=== PATIENT | male | born 1980 | race Caucasian/White ===

== ENCOUNTER 2019-01-08 23:37 | Emergency (ER) | payer OTHER ==
[2019-01-09] MEDS: ONDANSETRON HCL/PF 4 MG/ 2ML VIAL IVP ONE (00:35)
[2019-01-09] MEDS: 0.9 % SODIUM CHLORIDE 1,000 ML IV ONE ×2 (00:35→02:05)
[2019-01-09] MEDS: KETOROLAC TROMETHAMINE 30 MG/1ML VIAL IV ONE (00:35)
[2019-01-09 01:05] LABS: BASOPHILS % 0.5 % (0.0-1.5); NEUTROPHILS # 7.3 # k/uL (1.4-7.7)
--- NOTE | 2019-01-09 01:06 | ED Physician Documentation ---
General Adult - HISTORIAN Historian: patient - HPI Stated Complaint: L flank pain Chief Complaint: General Adult Onset: days ago Timing: still present Severity: moderate Further Comments: yes (Pt is a 38 yo male with L flank pain. Pain has been going on for 3 days, varying in intesity intermittently. Pt has been nauseated at times. No vomiting. No fever. Pt has had difficulty voiding. Pt was rx'd Cipro empirically via pcp and has taken 4 doses, but this has not helped.) - ROS CONST: no problems EYES/ENT: none CVS/RESP: none GI/: abdominal pain, problems urinating, nausea MS/SKIN/LYMPH: none - PAST HX Past History: hypertension Surgeries/Procedures: cholecystectomy, other (ortho surgery) Allergies/Adverse Reactions: Allergies Allergy/AdvReac Type Severity Reaction Status Date / Time No Known Allergies Allergy Verified 01/09/19 01:20 Home Medications: Ambulatory Orders Medication Instructions Recorded Azelastine HCl 1 spray BC PRN 01/09/19 Ciprofloxacin HCl [Cipro] 500 mg PO BID 01/09/19 HYDROcodone /APAP 5/325 [[place] 1 tab PO QID 01/09/19 5/325] Losartan Potassium [Cozaar] 1 tab PO DAILY 01/09/19 Montelukast Sodium [Singulair] 10 mg PO DAILY 01/09/19 Nebivolol HCl [Bystolic] 10 mg PO DAILY 01/09/19 Sulfamethoxazole/Trimethoprim 1 tab PO BID 01/09/19 [Bactrim DS] amLODIPine BESYLATE [Norvasc] 10 mg PO DAILY 01/09/19 - SOCIAL HX Smoking History: non-smoker - FAMILY HX Family History: Yes (strong fam hx kidney stones) - REVIEWED ASSESSMENTS Nursing Assessment Reviewed: Yes Vitals Reviewed: Yes Progress - Progress Progress: Pt took [place] [employer] suppression [employer] from an old prescription Pt started Cipro 2 days ago empirically via pcp. Delatorre placed for difficulty voiding. Only a small amount of urine obtained. NS 1.5 L IVF Toradol 30 mg IV Zofran [address] abd/pelvis w/o contrast: The aorta is normal in caliber. The visible lung bases are clear. The heart size is normal. There is diffuse hepatic steatosis. The gallbladder is surgically absent. The intrahepatic and extrahepatic bile ducts are nondilated. The spleen, pancreas, and adrenal glands appear normal. The kidneys are normal in size. There is mild left hydroureteronephrosis. There is a 3 mm calculus layering in the urinary bladder on the left, just beyond the vesicoureteral junction. The distal esophagus and stomach appear normal. The small bowel and colon are normal in caliber without evidence of wall thickening or obstruction. The ap pendix is not seen. No free air or free fluid is identified in the abdomen. There is no abdominal lymphadenopathy. A Delatorre catheter terminates in a decompressed urinary bladder. No free fluid is seen in the pelvis. Bone windows demonstrate no suspicious lytic or blastic lesions. The visible osseous structures are intact. IMPRESSION: 1. A 3 mm calculus layering in the urinary bladder on the left, just beyond the vesicoureteral junction. The calculus has likely recently passed given the presence of mild lefthydroureteronephrosis. 2. Diffuse hepatic steatosis. Pt much improved Delatorre cath removed and pt was able to void after 1.5 L NS Continue pain medicine and antibiotic as previously prescribed. Rx Flomax 0.4 mg. Take one daily for 5 days or until stone passes. ED Results Lab/Radiology - Lab Results Lab Results: Lab Results 01/08/19 00:50 WBC 9.90 K/ul K/ul (4.00-12.00) RBC 4.95 M/ul M/ul (3.90-5.20) Hgb 15.4 g/dL g/dL (12.0-18.0) Hct 44.9 % % (37.0-53.0) MCV 91.0 fl fl (80.0-100.0) MCH 31.1 pg pg (28.0-34.0) MCHC 34.2 g/dL g/dL (30.0-36.0) RDW 13.2 % % (11.3-14.3) Plt Count 169 K/mm3 K/mm3 (130-400) Neut % (Auto) 73.3 % % (39.0-79.0) Lymph % (Auto) 16.2 % % (16.0-50.0) Cassia % (Auto) 8.3 % % (0.0-11.0) Eos % (Auto) 1.7 % % (0.0-6.8) Baso % (Auto) 0.5 % % (0.0-1.5) Neut # (Auto) 7.3 # k/uL # k/uL (1.4-7.7) Lymph # (Auto) 1.6 # k/uL # k/uL (0.6-4.0) Cassia # (Auto) 0.8 # k/uL # k/uL (0.0-0.9) Eos # (Auto) 0.2 # k/uL # k/uL (0.0-0.6) Baso # (Auto) 0.1 # k/uL # k/uL (0.0-0.5) - Orders Orders: ED Orders Category Date Time Status Delatorre [Urinary catheterization] 1T Care 01/08/19 23:[address] ABD & PELVIS W/O CON Stat Exams 01/09/19 Ordered CBC/PLATELET/DIFF Routine Lab 01/08/19 00:50 Completed CMP Routine Lab 01/08/19 00:50 Received UA [URINALYSIS] Routine Lab 01/08/19 Ordered 0.9 % Sodium Chloride [Normal Saline] 1,000 ml Med 01/09/19 00:35 Active IV Q1H Ketorolac Tromethamine [Toradol] Med 01/08/19 23:49 Discontinued 30 mg IV NOW ONE Ondansetron HCl/Pf [Zofran] Med 01/08/19 23:50 Discontinued 4 mg IVP NOW ONE General Adult Physical Exam - PHYSICAL EXAM GENERAL APPEARANCE: moderate distress EENT: pharynx normal NECK: normal inspection, supple RESPIRATORY: no resp distress, chest non-tender, breath sounds normal CVS: reg rate & rhythm, heart sounds normal ABDOMEN: soft, normal bowel sounds, tenderness (L flank) BACK: normal inspection, CVA tenderness (L) SKIN: warm/dry, normal color EXTREMITIES: non-tender, normal range of motion, no evidence of injury, no edema NEURO: oriented X3, motor nml, sensation nml Discharge Clincal Impression: Kidney stone on left side Condition: Stable Disposition: 01 HOME, SELF-CARE Decision to Admit: NO Decision Time: 02:40
[2019-01-09 01:11] LABS: eGFR (Non-African) 52
[2019-01-09] MEDS: TAMSULOSIN HCL 0.4 MG CAP.ER.24H PO ONE (01:50)
[2019-01-09 04:19] VITALS: BP 119/67
--- NOTE | 2019-01-09 06:58 | Diagnostic Imaging Report ---
KOURTNEY HERNANDEZ [facility] [id number] [facility] [address] [place], [place]. [address] Report Submission Date: Jan 09, 2019 1:28:27 AM CDT Patient Study Name: MARLENI TOMLINSON Date: Jan 09, 2019 1:06:14 AM CDT Modality Type: CT Gender: M Description: CT ABD PELVIS W/O CO : 80 Institution: [facility] Physician: AMRY KOURTNEY Smiley RODRIGUES EXAMINATION: CT ABD PELVIS W/O CO HISTORY: L flank pain (Hx) / ITS.REASON L flank pain (DICOM Hx) (DICOM Hx) TECHNIQUE: CT of the abdomen and pelvis was performed without contrast according to standard protocol. COMPARISON: None FINDINGS: The aorta is normal in caliber. The visible lung bases are clear. The heart size is normal. There is diffuse hepatic steatosis. The gallbladder is surgically absent. The intrahepatic and extrahepatic bile ducts are nondilated. The spleen, pancreas, and adrenal glands appear normal. The kidneys are normal in size. There is mild left hydroureteronephrosis. There is a 3 mm calculus layering in the urinary bladder on the left, just beyond the vesicoureteral junction. The distal esophagus and stomach appear normal. The small bowel and colon are normal in caliber without evidence of wall thickening or obstruction. The appendix is not seen. No free air or free fluid is identified in the abdomen. There is no abdominal lymphadenopathy. A Delatorre catheter terminates in a decompressed urinary bladder. No free fluid is seen in the pelvis. Bone windows demonstrate no suspicious lytic or blastic lesions. The visible osseous structures are intact. IMPRESSION: 1. A 3 mm calculus layering in the urinary bladder on the left, just beyond the vesicoureteral junction. The calculus has likely recently passed given the presence of mild lefthydroureteronephrosis. 2. Diffuse hepatic steatosis. Electronically signed on Jan 09, 2019 1:28:27 AM CDT by: Anthony WALLER
[2019-01-09 08:42] LABS: APPEARANCE,URINE CLEAR (CLEAR); COLOR,URINE YELLOW (YELLOW)
[2019-01-09 08:43] LABS: OCCULT BLOOD,URINE 2+ (NEGATIVE); PH URINE 5.5 (5.0 - 8.0); UROBILINOGEN URINE 0.2 Eu (0.2-1.0)
== END 2019-01-09 03:10 | disposition home or self-care (01) ==
LOC: ED 23:37
DX: N20.0 Calculus of kidney (principal)
CPT/HCPCS: 74176; 80053; 81002; 85025; 94640; 96361; 96374; 96375; 99282; 99284; J1885; J2405; J7030; S1016